=== PATIENT | female | born 1970 | race Two or more races ===

== ENCOUNTER 2024-02-18 10:10 | Emergency (ER) | payer MEDICARE, SELFPAY ==
[2024-02-18 10:15] VITALS: BP 105/50
--- NOTE | 2024-02-18 11:20 | ED.GENMED ---
History of Present Illness
General
Chief Complaint: Headache
Source: patient
Exam Limitations: none
Time Seen by Provider: 02/18/24 11:00
Travel History
Have you had any contact with someone who has COVID-19?: No
Do you have any symptoms of coronavirus? Fever > 100 degrees, chills, cough, shortness of breath, sore throat, loss of taste or smell, muscle aches, or headache?: No
History of Present Illness
History of Present Illness:
53-year-old female presents with ongoing headache that is diffuse in nature for the past 3 days. She notes associated numbness to the left and occasionally right side of the face. She notes a pressure in her eye as well on the left side. She was
seen at the urgent care yesterday was given Toradol injection which helped temporarily but symptoms returned. The numbness on the left side is been going on for several weeks. She denies any unilatera weakness. No fevers or rash. No vision
change. No chest pain or shortness of breath. No other complaints at this time. Headache is gradual in onset
Phy Exam
Physical Exam
Physical Exam:
General: Well-appearing female no acute respiratory distress
HEENT: Normocephalic atraumatic pupils equal round reactive to light TMs normal extraocular's are intact negative Tinel's over the temporal artery bilateral
Heart: Regular rate and rhythm no murmurs
Lungs: Clear no wheeze or rales
Abdomen: Soft nontender nondistended
Neurologic exam: Alert and oriented x 3 no facial asymmetry. Good strength to the upper and lower extremities. Finger-nose intact
Extremities: No cyanosis
Course
Orders/Labs/Results
Orders:
Orders
02/18/24 11:11
CT Head W/o Iv Contrast Urgent
Comment:
Reason For Exam: headache, numbness
02/18/24 11:50
CRP [C-Reactive Protein] Urgent
Complete Blood Count/With Diff Urgent
Comprehensive Metabolic Panel Urgent
Sed Rate [Erythrocyte Sed Rate] Urgent
Abnormal Lab Results
02/18/24
11:50
Immature Gran % 0.6 H %
(0-0.5)
Chloride 110 H mmol/L
(98-107)
02/18/24 11:50
02/18/24 11:50
Vital Signs
Initial and Last Documented VS:
Initial Vital Signs
Temp Pulse Resp BP Pulse Ox
97.8 F 71 18 105/50 99
02/18/24 10:15 02/18/24 10:15 02/18/24 10:15 02/18/24 10:15 02/18/24 10:15
Last Documented Vital Signs
Temp Pulse Resp BP Pulse Ox
97.8 F 71 18 105/50 99
02/18/24 10:15 02/18/24 10:15 02/18/24 10:15 02/18/24 10:15 02/18/24 10:15
MDM/Problems Addressed
Differential Diagnosis Includes:
Headache with left eye pressure. Atypical migraine versus temporal arteritis. She notes mainly left-sided paresthesias. CT ordered to evaluate for CVA or mass or tumor.
Patient overall nontoxic without any objective neurologic findings. Symptoms were relieved with Toradol yesterday. Question possible migraine component
*Critical Care Note
Total Time (30-74mins, 75-104mins- exclusive of procedures): Not Applicable
Update Note
Update Note:
CT head negative. Labs reviewed without significant finding. Patient feeling better after sleeping in the dark room migraine variant. Stable for discharge. Do not suspect intracranial hemorrhage. She does not describe a sudden onset headache.
Symptoms are bilateral and do not suspect CVA
ED Attending Note
-
Portions of this chart may have been created with voice recognition software.� Occasional wrong word or��sound alike� substitutions may have occurred due to the inherent limitations of voice recognition software.
Discharge Plan
Departure
Patient Disposition: Home (Routine Discharge)
Date of Disposition: 02/18/24
Time of Disposition: 13:57
Patient with high blood pressure during this ER visit?: No
Discharge Problem:
Headache
Instructions: Migraines (DC)
Referrals:
Elaine Landa CRNP [Family Provider] -
Activity Restrictions/Additional Instructions:
Rest. Use Excedrin. Return if needed otherwise follow-up with family doctor
Interventions
Interventions:
*Risk Screen - Suicide Last Done: 02/18/24 10:20
*General Assessment Last Done: 02/18/24 10:20
*Neglect/Abuse Screening Last Done: 02/18/24 10:20
*ED COVID-19 Vaccine History Last Done: 02/18/24 11:54
ED- Neurological Assessment Last Done: 02/18/24 11:55
Discharge Date and Time
Print Language: WELSH
[2024-02-18 12:01] LABS: % Basophils 0.4 % (0-2); % Eosinophils 3.6 % (0-6); % Immature Granulocytes 0.6 % (0-0.5); % Lymphocytes 35.3 % (20.5-51.1); % Monocytes 8.7 % (1.7-9.3); % Neutrophils 51.4 % (42.2-75.2); Absolute Eosinophils 0.3 10^3/uL (0-0.7); Absolute Lymphocytes 2.4 10^3/uL (1.2-3.4); Absolute Monocytes 0.6 10^3/uL (0.1-0.6); Absolute Neutrophils 3.5 10^3/uL (1.4-6.5); Hematocrit 40.1 % (37.0-47.0); Hemoglobin 13.3 g/dL (12.0-16.0); Mean Corp Hgb Conc. 33.2 g/dL (33.0-37.0); Mean Corpuscular Hgb 28.6 pg (27.0-31.0); Mean Corpuscular Volume 86.2 fL (81.0-99.0); Mean Platelet Volume 10.3 fL (7.4-10.4); Nucleated Red Blood Cells % 0 %; Platelet Count 282 10^3/uL (130-400); Red Blood Cell Count 4.65 10^6/uL (4.20-5.40); Red Cell Dist. Width 14.5 % (11.5-14.5); White Blood Cell Count 6.9 10^3/uL (4.8-10.8)
[2024-02-18 12:38] LABS: Erythrocyte Sed Rate 10 mm/hour (0-20)
[2024-02-18 12:44] LABS: ALT (SGPT) 31 U/L (0-35); AST (SGOT) 29 U/L (14-36); Albumin 3.9 g/dl (3.5-5.0); Alkaline Phosphatase 84 U/L (38-126); Blood Urea Nitrogen 13 mg/dl (7-17); Calcium 9.2 mg/dl (8.4-10.2); Carbon Dioxide 23 mmol/L (22-30); Chloride 110 mmol/L (98-107); Glucose 98 mg/dl (70-99); Potassium 4.5 mmol/L (3.5-5.1); Sodium 139 mmol/L (135-145); Total Bilirubin 0.5 mg/dl (0.2-1.3); Total Protein 6.6 g/dl (6.3-8.2); eGFR > 60.00
[2024-02-18 13:20] LABS: C-Reactive Protein < 5.00 mg/L (0.0-10.00)
[2024-02-18 14:21] VITALS: BP 98/54
== END 2024-02-18 14:26 | disposition home or self-care (01) ==
LOC: EMR 10:10
PROVIDERS: Physician Assistant; EMERGENCY PHYSICIAN Emergency Medicine; FAMILY PHYSICIAN Registered Nurse
DX: R51.9 Headache, unspecified (principal)
CPT/HCPCS: 99284; 70450; 80053; 85025; 85652; 86140